=== PATIENT | male | born 1965 | race African-American/Black ===

== ENCOUNTER 2016-11-24 08:11 | Emergency (ER) | payer OTHER ==
[~2016-11-24] VITALS: Ht 188 cm; Wt 120.4 kg
[~2016-11-24 08:11] MED LIST: BENZ0.5T PO; CYMB60CA PO; GLYB1TAB51 PO; HYDR50CA PO; NOVONP2 SQ; RISP1SOL15 PO; RISP1TAB2 PO; SERO200T2 OR; TRAM50TA PO; TRAZ100 PO; [UNRECOGNIZED DRUG - CODE] PO
[2016-11-24 08:13] VITALS: BP 166/103; PULSE 95; RESP 12; TEMP 97.9; O2SAT 96
[2016-11-24 08:30] VITALS: BP 162/91; PULSE 83; RESP 16; O2SAT 98
[2016-11-24] MEDS ORDERED: QUET1TAB7 PO (08:52)
[2016-11-24] MEDS ORDERED: LISI2.5T3 PO (08:52)
[2016-11-24] MEDS ORDERED: OMEGCAP PO (08:52)
[2016-11-24] MEDS ORDERED: ERGO1CAP30 PO (08:52)
[2016-11-24] MEDS ORDERED: ATOR10TA15 PO (08:52)
[2016-11-24] MEDS ORDERED: GABA400C5 PO (08:52)
[2016-11-24] MEDS ORDERED: VIAG25TA PO (08:52)
[2016-11-24] MEDS ORDERED: ACET325T PO (08:52)
[2016-11-24] MEDS ORDERED: HUMUINJ5 SQ (08:52)
[2016-11-24] MEDS ORDERED: SERT25TA83 PO (08:52)
[2016-11-24] MEDS ORDERED: COLE1TAB2 PO (08:52)
[2016-11-24] MEDS ORDERED: CYAN1000P IM (08:52)
[2016-11-24] MEDS ORDERED: NIAC50TA4 PO (08:52)
[2016-11-24] MEDS ORDERED: NAPR500T PO (08:52)
[2016-11-24] MEDS ORDERED: LANTUS2P SQ (08:52)
[2016-11-24 09:30] LABS: AUTOMATED NEUTROPHIL # 3.2 TH/MM3 (1.8-7.7); BASOPHIL # 0.1 TH/MM3 (0-0.2); BASOPHIL % 0.9 % (0.0-2.0); EOSINOPHIL # 0.1 TH/MM3 (0-0.4); HEMATOCRIT 44.4 % (39.0-51.0); HEMO FLAGS DIFF FINAL; LYMPH % 31.6 % (9.0-44.0); LYMPHOCYTE # 1.7 TH/MM3 (1.0-4.8); MEAN CELL VOLUME 82.5 FL (80.0-100.0); MEAN CORPUSCULAR HEMOGLOBIN 27.5 PG (27.0-34.0); MEAN CORPUSCULAR HGB CONC 33.4 % (32.0-36.0); MONO % 7.3 % (0.0-8.0); NEUT % 58.2 % (16.0-70.0); PLATELET COUNT 169 TH/MM3 (150-450); RED BLOOD COUNT 5.38 MIL/MM3 (4.50-5.90); RED CELL DISTRIBUTION WIDTH 15.1 % (11.6-17.2); WHITE BLOOD COUNT 5.5 TH/MM3 (4.0-11.0)
[2016-11-24 09:52] LABS: ALKALINE PHOSPHATASE 64 U/L (45-117); ALT (GPT) 37 U/L (12-78); ANION GAP 10 MEQ/L (5-15); AST (GOT) 29 U/L (15-37); BICARBONATE 25.4 MEQ/L (21.0-32.0); BLOOD UREA NITROGEN 18 MG/DL (7-18); CHLORIDE 104 MEQ/L (98-107); GLOMERULAR FILTRATION RATE 71 ML/MIN (>89); SODIUM (NA) 139 MEQ/L (136-145); TOTAL BILIRUBIN ADULT 0.3 MG/DL (0.2-1.0)
[2016-11-24 09:53] LABS: POTASSIUM 3.5 MEQ/L (3.5-5.1)
[2016-11-24 10:17] LABS: AMPHETAMINE, URINE NEG (NEG); BARBITURATES, URINE NEG (NEG); COCAINE, URINE POS (NEG)
--- NOTE | 2016-11-24 11:13 | PD ---
HPI Chief Complaint: Psychiatric Symptoms Time Seen by Provider: 09:53 Travel History International Travel<30 days: No Contact w/Intl Traveler<30days: No Traveled to known affect area: No History of Present Illness HPI 51-year-old man presents emergent from complaining that he is been hearing voices, more recently, he has scalp pain, more recently, he has memory loss, more recently. States symptoms been ongoing for months L worse over the past couple weeks. [facility]. Denies SI or HI. History Past Medical History Narrative Medical Diabetes Neuropathy Hypokalemia Hypertension Social History Alcohol Use: Yes (1 BEER/DAY) Tobacco Use: Yes (4 CIG/DAY) Allergies-Medications (Allergen,Severity, Reaction): Coded Allergies: No Known Allergies (Verified , 08/13/11) Reported Meds & Prescriptions Reported Meds & Active Scripts Active Reported Cyanocobalamin Inj (Cyanocobalamin) 1,000 Mcg/Ml Inj 1,000 Mcg IM EVERY OTHER WEEK Lisinopril 2.5 Mg Tab 2.5 Mg PO DAILY Niacin 50 Mg Tab Unknown Dose PO DAILY Colestipol (Colestipol HCl) 1 Gm Tab Unknown Dose PO DAILY Gabapentin 400 Mg Cap 400 Cap PO BID Atorvastatin (Atorvastatin Calcium) 10 Mg Tab Unknown Dose PO HS [place]-3 Fish Oil/Vitamin (Fish Oil-Cholecalciferol) 1,000-1,000 Mg Cap 4 Cap PO BID Naproxen 500 Mg Tab 500 Mg PO BID Sertraline (Sertraline HCl) 25 Mg Tab Unknown Dose PO DAILY Quetiapine (Quetiapine Fumarate) 25 Mg Tab Unknown Dose PO HS Acetaminophen 325 Mg Tab 650 Mg PO Q4-6H PRN Ergocalciferol 50,000 Unit Cap Unknown Dose PO Q7D Viagra (Sildenafil Citrate) 25 Mg Tab Unknown Dose PO WEEKLY PRN Humulin R U-500 (Concentrate) Inj (Insulin Regular (Human) Concentrate Inj) 10, 000 Unit/20 Ml Vial 20 Units SQ TID Lantus Inj (Insulin Glargine) 1,000 Unit/10 Ml Vial 65 Units SQ HS Review of Systems Except as stated in HPI: all other systems reviewed are Neg Physical Exam Narrative GENERAL: Well-appearing 51-year-old man, no acute distress. SKIN: Warm and dry. HEAD: Atraumatic. Normocephalic. EYES: Pupils equal and round. No scleral icterus. No injection or drainage. ENT: No nasal bleeding or discharge. Mucous membranes pink and moist. NECK: Trachea midline. No JVD. CARDIOVASCULAR: Regular rate and rhythm. No murmur appreciated. RESPIRATORY: No accessory muscle use. Clear to auscultation. Breath sounds equal bilaterally. GASTROINTESTINAL: Abdomen soft, non-tender, nondistended. Hepatic and splenic margins not palpable. MUSCULOSKELETAL: No obvious deformities. No clubbing. No cyanosis. No edema. NEUROLOGICAL: Awake and alert. No obvious cranial nerve deficits. Motor grossly within normal limits. Normal speech. PSYCHIATRIC: Appropriate mood and affect; insight and judgment normal. Data Data Last Documented VS Vital Signs Date Time Temp Pulse Resp B/P Pulse Ox O2 Delivery O2 Flow Rate FiO2 11/24/16 08:30 83 16 162/91 98 Room Air 11/24/16 08:13 97.9 Orders Complete Blood Count With Diff (11/24/16 09:02) Comprehensive Metabolic Panel (11/24/16 09:02) Drug Screen, Random Urine (11/24/16 09:02) Psych Screen (11/24/16 09:02) Labs Laboratory Tests Test 11/24/16 11/24/16 09:09 09:53 White Blood Count 5.5 TH/MM3 Red Blood Count 5.38 MIL/MM3 Hemoglobin 14.8 GM/DL Hematocrit 44.4 % Mean Corpuscular Volume 82.5 FL Mean Corpuscular Hemoglobin 27.5 PG Mean Corpuscular Hemoglobin 33.4 % Concent Red Cell Distribution Width 15.1 % Platelet Count 169 TH/MM3 Mean Platelet Volume 9.2 FL Neutrophils (%) (Auto) 58.2 % Lymphocytes (%) (Auto) 31.6 % Monocytes (%) (Auto) 7.3 % Eosinophils (%) (Auto) 2.0 % Basophils (%) (Auto) 0.9 % Neutrophils # (Auto) 3.2 TH/MM3 Lymphocytes # (Auto) 1.7 TH/MM3 Monocytes # (Auto) 0.4 TH/MM3 Eosinophils # (Auto) 0.1 TH/MM3 Basophils # (Auto) 0.1 TH/MM3 CBC Comment DIFF FINAL Differential Comment Sodium Level 139 MEQ/L Potassium Level 3.5 MEQ/L Chloride Level 104 MEQ/L Carbon Dioxide Level 25.4 MEQ/L Anion Gap 10 MEQ/L Blood Urea Nitrogen 18 MG/DL Creatinine 1.29 MG/DL Estimat Glomerular Filtration 71 ML/MIN Rate Random Glucose 65 MG/DL Calcium Level 9.2 MG/DL Total Bilirubin 0.3 MG/DL Aspartate Amino Transf 29 U/L (AST/SGOT) Alanine Aminotransferase 37 U/L (ALT/SGPT) Alkaline Phosphatase 64 U/L Total Protein 7.7 GM/DL Albumin 3.6 GM/DL Urine Opiates Screen NEG Urine Barbiturates Screen NEG Urine Amphetamines Screen NEG Urine Benzodiazepines Screen NEG Urine Cocaine Screen POS Urine Cannabinoids Screen POS MDM Medical Decision Making Medical Screen Exam Complete: Yes Emergency Medical Condition: Yes Interpretation(s) LABS: CBC unremarkable. CMP unremarkable. Urine dressing positive for cocaine, cannabinoids Differential Diagnosis Psychiatrist psychiatric disease, diabetes, neuropathy, other Narrative Course Medical decision making 51-year-old male multiple subacute complaints. No evidence of immediately dangerous disease. Hearing voices appears stable. He follows a psychiatry. Denies SI or HI. Not floridly psychotic now. Recommend outpatient follow-up. Was offered to stay for psychiatric evaluation here with the patient declines. Diagnosis Primary Impression: Hearing voices Additional Instructions: [facility] Return emergent department for any worsening symptoms. Med/Other Pt SpecificInfo: No Change to Meds Disposition: 01 DISCHARGE HOME Condition: Stable Vladimir Chawla MD Nov 24, 2016 11:13
[2016-11-24 12:21] VITALS: BP 117/67; TEMP 98.4
== END 2016-11-24 11:50 | disposition home or self-care (01) ==
LOC: NEPE 08:11
DX: R44.0 Auditory hallucinations (principal); R41.3 Other amnesia; R51 Headache; E11.9 Type 2 diabetes mellitus without complications; G62.9 Polyneuropathy, unspecified; E87.6 Hypokalemia; I10 Essential (primary) hypertension; Z72.0 Tobacco use
CPT/HCPCS: 80053; 80307; 85025; 99284